=== PATIENT | female | born 1985 | race Caucasian/White ===

== ENCOUNTER 2017-06-20 08:01 | Inpatient (IN) | payer OTHER ==
[~2017-06-20] VITALS: Ht 160 cm; Wt 61.7 kg
[~2017-06-20 08:01] MED LIST: BACTRIM DS1 TAB PO; CLINDAMYCIN300 M1 PO; DEPO-PROVER150 MG/M1 IM; LAC PO; NAPROSYN375 MG
[2017-06-20 09:44] LABS: BASOPHIL % 0.3 % (0-2); RED CELL DISTRIBUTION WIDTH 13.1 % (11.5-14.5)
[2017-06-20 09:48] LABS: PLATELET COUNT 478 x10^3mcL (130-400)
[2017-06-20 09:53] LABS: CARBON DIOXIDE 26.3 mmol/L (21-32); CHLORIDE SERUM 103 mmol/L (98-107); CREATININE SERUM 0.7 mg/dL (0.6-1.0); GFR1 > 60 mL/min; GLUCOSE SERUM 107 mg/dL (74-106); POTASSIUM SERUM 3.9 mmol/L (3.5-5.1); SODIUM SERUM 138 mmol/L (136-145)
[2017-06-20 10:02] LABS: CK-MB 0.5 ng/mL (0-3.6)
[2017-06-20 10:14] LABS: ALBUMIN 3.8 g/dL (3.4-5.0); ALKALINE PHOSPHATASE 88 U/L (46-116); ALT/SGPT 21 U/L (14-59); AST/SGOT 10 U/L (15-37); BILIRUBIN TOTAL 0.4 mg/dL (0.20-1.00); C REACTIVE PROTEIN 1.6 mg/dL (<=0.9)
[2017-06-20 10:15] LABS: TOTAL PROTEIN, SERUM 8.6 g/dL (6.4-8.2)
[2017-06-20 10:17] LABS: T3 TOTAL 1.15 ng/mL
[2017-06-20 10:27] LABS: UA SPECIFIC GRAVITY <=1.005 (1.005-1.035); microscopic required? YES; urine erythrocyte TRACE (NEGATIVE)
[2017-06-20 10:36] LABS: FREE T4 0.96 ng/dL (0.76-1.46); FREE THYROXINE INDEX 2.7 ug/dL (1.4-4.5); T4(THYROXINE) 8.6 ug/dL (4.7-13.3)
[2017-06-20] MEDS ORDERED: KEFLEX500 M1 PO (10:51)
[2017-06-20 11:29] VITALS: BP 112/70
[2017-06-20 11:32] LABS: ERYTHROCYTE SED RATE 33 mm/hr (0-20)
[2017-06-20 11:34] LABS: AMPHETAMINE QUAL UR NONE DETECTED (NEG <=1000)
[2017-06-20 11:34] LABS: CHOLESTEROL/HDL RATIO 5.2; MAGNESIUM 2.3 mg/dL (1.8-2.4); PHOSPHOROUS 3.3 mg/dL (2.5-4.9)
[2017-06-20 11:55] VITALS: BP 112/70
[2017-06-20 14:24] VITALS: BP 103/71
[2017-06-20 17:53] VITALS: BP 95/60
[2017-06-20 21:30] VITALS: BP 97/63
[2017-06-21 05:54] VITALS: BP 103/60
[2017-06-21 06:29] LABS: BASOPHIL % 0.4 % (0-2); PLATELET COUNT 391 x10^3mcL (130-400); RED CELL DISTRIBUTION WIDTH 13.4 % (11.5-14.5)
[2017-06-21 06:33] LABS: CALCIUM 8.4 mg/dL (8.5-10.1); CARBON DIOXIDE 25.9 mmol/L (21-32); CHLORIDE SERUM 106 mmol/L (98-107); CREATININE SERUM 0.8 mg/dL (0.6-1.0); GFR1 > 60 mL/min; GLUCOSE SERUM 103 mg/dL (74-106); PHOSPHOROUS 3.6 mg/dL (2.5-4.9); POTASSIUM SERUM 4.2 mmol/L (3.5-5.1); SODIUM SERUM 138 mmol/L (136-145)
[2017-06-21 09:10] VITALS: BP 102/60
[2017-06-21 14:30] VITALS: BP 117/68
[2017-06-21 18:16] VITALS: BP 98/59
[2017-06-21 21:42] VITALS: BP 101/69
[2017-06-22 05:23] VITALS: BP 104/61
[2017-06-22 07:09] LABS: BASOPHIL % 0.4 % (0-2)
[2017-06-22 07:18] LABS: PLATELET COUNT 401 x10^3mcL (130-400)
[2017-06-22 10:36] VITALS: BP 119/72
[2017-06-22 18:03] VITALS: BP 104/67
[2017-06-22 21:48] VITALS: BP 99/69
[2017-06-23 06:49] VITALS: BP 105/51
[2017-06-23 10:57] VITALS: BP 120/77
[2017-06-23 18:19] VITALS: BP 96/62
[2017-06-23 21:05] VITALS: BP 105/64
[2017-06-24 05:29] VITALS: BP 90/52
[2017-06-24 06:03] LABS: BASOPHIL % 0.4 % (0-2); RED CELL DISTRIBUTION WIDTH 12.9 % (11.5-14.5)
[2017-06-24 06:16] LABS: CARBON DIOXIDE 26.9 mmol/L (21-32); CHLORIDE SERUM 104 mmol/L (98-107); CREATININE SERUM 0.8 mg/dL (0.6-1.0); GFR1 > 60 mL/min; GLUCOSE SERUM 104 mg/dL (74-106); MAGNESIUM 2.2 mg/dL (1.8-2.4); POTASSIUM SERUM 4.2 mmol/L (3.5-5.1); SODIUM SERUM 137 mmol/L (136-145)
[2017-06-24 06:43] LABS: PLATELET COUNT 403 x10^3mcL (130-400)
[2017-06-24 11:12] VITALS: BP 123/68
[2017-06-24 14:52] VITALS: BP 107/66
[2017-06-24] MEDS ORDERED: LAC PO (17:20)
== END 2017-06-24 17:39 | disposition left against medical advice (07) | DRG 385 ==
LOC: ED 08:01 → DU 10:22 → MU 06-22 10:08
PROVIDERS: Specialist; ADMIT Family Medicine
DX: N61.1 Abscess of the breast and nipple (principal); E78.5 Hyperlipidemia, unspecified; D64.9 Anemia, unspecified; Z68.24 Body mass index [BMI] 24.0-24.9, adult
CPT/HCPCS: 76641; 83880; 84439; J1200; J1885; J2020; J2270; J2405; J2543; J7030; Q0092